=== PATIENT | male | born 1995 | race Two or more races ===

== ENCOUNTER 2017-01-27 22:01 | Emergency (ER) | payer OTHER, MEDICAID ==
[~2017-01-27] VITALS: Ht 172.7 cm; Wt 59.0 kg
[2017-01-27] MEDS ORDERED: PLEASE ENTER HEIGHT AND WEIGHT MC SCH (22:30)
[2017-01-27] MEDS ORDERED: SODIUM CHLORIDE FLUSH 10ML SYR IVF ONE (22:30)
[2017-01-27] MEDS ORDERED: PLEASE ENTER ALLERGIES MC SCH ×4 (22:30)
[2017-01-27] MEDS ORDERED: LORazepam 1MG TABLET PO ONE (22:30)
[2017-01-27] MEDS ORDERED: SODIUM CHLORIDE 0.9% 1,000ML IVBOLUS ONE (22:30)
[2017-01-27] MEDS ORDERED: LORazepam 2 MG/ML, 1ML ONE (22:34)
[2017-01-27 22:39] LABS: ASPARTATE AMINO TRANSFERASE 24 U/L (15-37); BLOOD UREA NITROGEN 9 mg/dL (7-18)
[2017-01-27] MEDS ORDERED: LORazepam 1MG TABLET ONE (22:55)
[2017-01-28] MEDS ORDERED: HYDROcodone/APAP 5/325 TABLET PO ONE (01:00)
[2017-01-28] MEDS ORDERED: HYDROcodone/APAP 5/325 TABLET ONE (01:27)
[2017-01-28 01:30] VITALS: BP 107/61
== END 2017-01-28 02:20 | disposition home or self-care (01) ==
LOC: ED 22:17
DX: S20.319A Abrasion of unspecified front wall of thorax, initial encounter (principal); R56.9 Unspecified convulsions; Z72.89 Other problems related to lifestyle; X58.XXXA Exposure to other specified factors, initial encounter; Y93.89 Activity, other specified; Y92.89 Other specified places as the place of occurrence of the external cause; Y99.8 Other external cause status
CPT/HCPCS: 36415; 70450; 80053; 83605; 85025; 96360; 99285; J7030